=== PATIENT | male | born 1975 | race Caucasian/White ===

== ENCOUNTER → 2023-10-26 | Emergency (ER) | payer OTHER ==
[~2023-10-26] VITALS: Ht 190.5 cm; Wt 128.0 kg
[~2023-10-26] MED LIST: CEPH500T MT; SULF1TAB48 MT
[2023-10-26 13:06] VITALS: O2SAT 98
[2023-10-26 13:28] LABS: CLARITY URINE CLEAR (CLEAR); COLOR URINE YELLOW (YELLOW); GLUCOSE URINE 3+ (NEGATIVE); KETONES URINE 3+ (NEGATIVE); LEUKOCYTE ESTERASE URINE NEGATIVE (NEGATIVE); NITRITE URINE NEGATIVE (NEGATIVE); OCCULT BLOOD URINE TRACE (NEGATIVE); PROTEIN URINE 1+ (NEGATIVE); SPECIFIC GRAVITY URINE 1.035 (1.005-1.030)
[2023-10-26 13:50] LABS: BASOPHILS % 0.2 % (0.0-2.0); DIFFERENTIAL COMMENT 0; EOSINOPHILS % 0.4 % (0.0-5.0); HEMATOCRIT. 46.7 % (42.0-52.0); LYMPHOCYTES % 11.5 % (20.0-50.0); MEAN CORPUSCULAR HEMOGLOBIN 27.3 pg (28.0-32.0); MEAN CORPUSCULAR HGB CONC 34.3 g/dL (31.0-37.0); MEAN CORPUSCULAR VOLUME 79.5 fL (80.0-94.0); MEAN PLATELET VOLUME 7.4 fl (7.4-10.4); MONOCYTES % 7.7 % (2.0-8.0); NEUTROPHILS % 80.2 % (40.0-76.0); PLATELET 290 x1000/uL (130-400); RED BLOOD CELL COUNT 5.87 mill/uL (4.7-6.1); RED CELL DISTRIBUTION WIDTH 13.3 % (11.6-14.6); WHITE BLOOD COUNT 12.2 x1000/uL (4.5-11.0)
[2023-10-26 13:54] LABS: BACTERIA URINE NONE SEEN; RBC URINE 0-2 /hpf (0-2); SQUAMOUS EPITHELIAL CELL URINE NONE SEEN /lpf (RARE/1+); YEAST URINE NONE SEEN
[2023-10-26 13:59] LABS: CHLORIDE 103 mEq/L (98-107); POTASSIUM 3.4 mEq/L (3.5-5.1); SODIUM 135 mEq/L (136-145)
[2023-10-26 14:00] LABS: CALCIUM 9.2 mg/dL (8.7-10.4); CARBON DIOXIDE 22 mEq/L (21-32)
[2023-10-26 14:05] LABS: CREATININE 0.9 mg/dL (0.6-1.3); GLUCOSE 304 mg/dL (70-105); UREA NITROGEN BLOOD 10 mg/dL (9-23)
[2023-10-26] MEDS: CEFTRIAXONE SODIUM 1G VIAL IM ONE (15:59)
[2023-10-26 16:12] VITALS: BP 132/77; PULSE 100; RESP 20; TEMP 98.2
== END ==
LOC: ER 13:24
DX: L03.818 Cellulitis of other sites (principal); E11.9 Type 2 diabetes mellitus without complications
CPT/HCPCS: 99285; 72192; 80048; 81003; 85025; 36415; 96372; J0696

== ENCOUNTER 2024-03-17 11:36 | Emergency (ER) | payer OTHER ==
[~2024-03-17] VITALS: Ht 195.6 cm; Wt 128.0 kg
[2024-03-17 11:38] VITALS: O2SAT 99
[2024-03-17 11:47] VITALS: BP 175/89; PULSE 99; RESP 16; TEMP 98.3; O2SAT 98
[2024-03-17] MEDS ORDERED: SULF1TAB48 MT (13:04)
== END 2024-03-17 13:44 | disposition home or self-care (01) ==
LOC: ER 11:36
DX: K61.0 Anal abscess (principal); L02.215 Cutaneous abscess of perineum; E11.9 Type 2 diabetes mellitus without complications
CPT/HCPCS: 99283

== ENCOUNTER 2024-03-23 14:13 | Emergency (ER) | payer OTHER ==
[~2024-03-23] VITALS: Ht 190.5 cm; Wt 109.0 kg
[2024-03-23 14:15] VITALS: O2SAT 99
[2024-03-23 17:18] VITALS: BP 133/75; PULSE 77; RESP 15; TEMP 37.00296; O2SAT 99
== END 2024-03-23 17:20 | disposition home or self-care (01) ==
LOC: ER 14:19
DX: L02.91 Cutaneous abscess, unspecified (principal); E11.9 Type 2 diabetes mellitus without complications
CPT/HCPCS: 99281